=== PATIENT | male | born 1960 | race African-American/Black ===

== ENCOUNTER 2018-03-07 12:20 | Emergency (ER) | payer MEDICAID ==
[~2018-03-07] VITALS: Ht 167.6 cm; Wt 66.0 kg
[2018-03-07] MEDS ORDERED: FAMOTIDINE 20MG TABLET PO ONE (14:45)
[2018-03-07] MEDS ORDERED: METHYLPREDNISOLONE SOD SUCC 125 MG/2 ML VIAL IM ONE (14:45)
[2018-03-07] MEDS ORDERED: DIPHENHYDRAMINE 25MG CAPSULE PO ONE (14:45)
[2018-03-07 15:19] VITALS: BP 144/81
== END 2018-03-07 15:27 | disposition home or self-care (01) ==
LOC: ER 12:38
DX: T78.40XA Allergy, unspecified, initial encounter (principal); I10 Essential (primary) hypertension; E78.00 Pure hypercholesterolemia, unspecified; F17.200 Nicotine dependence, unspecified, uncomplicated; Z86.73 Personal history of transient ischemic attack (TIA), and cerebral infarction without residual deficits; X58.XXXA Exposure to other specified factors, initial encounter
CPT/HCPCS: 96372; 99283; J2930; Z7610; Q0163

== ENCOUNTER 2018-07-02 09:01 | Emergency (ER) | payer MEDICAID ==
[~2018-07-02] VITALS: Ht 167.6 cm; Wt 63.0 kg
[2018-07-02 09:26] VITALS: BP 149/89
[2018-07-02] MEDS ORDERED: ALBUTEROL (0.083%) 2.5MG/3ML NEB HHN STA (10:33)
[2018-07-02] MEDS ORDERED: IPRATROPIUM BROMIDE (0.02%) 0.5MG/2.5ML NEB HHN STA (10:33)
== END 2018-07-02 12:08 | disposition home or self-care (01) ==
LOC: ER 09:48
DX: J45.909 Unspecified asthma, uncomplicated (principal); I10 Essential (primary) hypertension; F17.200 Nicotine dependence, unspecified, uncomplicated; Z86.73 Personal history of transient ischemic attack (TIA), and cerebral infarction without residual deficits
CPT/HCPCS: 94640; 99283; J7611

== ENCOUNTER 2019-08-18 11:27 | Emergency (ER) | payer MEDICAID ==
[~2019-08-18] VITALS: Ht 167.6 cm; Wt 65.0 kg
[2019-08-18] MEDS ORDERED: PREDNISONE 20MG TABLET PO ONE (12:00)
[2019-08-18] MEDS ORDERED: IPRATROPIUM/ALBUTEROL 0.5-3(2.5)MG/3ML NEB HHN ONE (12:00)
[2019-08-18 13:20] VITALS: BP 151/82
== END 2019-08-18 13:39 | disposition home or self-care (01) ==
LOC: ER 11:27
DX: J44.1 Chronic obstructive pulmonary disease with (acute) exacerbation (principal); I10 Essential (primary) hypertension; Z98.890 Other specified postprocedural states; Z86.73 Personal history of transient ischemic attack (TIA), and cerebral infarction without residual deficits
CPT/HCPCS: 94640; 99283; J7512; J7620; Z7610

== ENCOUNTER 2019-11-08 04:42 | Emergency (ER) | payer MEDICAID ==
[~2019-11-08] VITALS: Ht 167.6 cm; Wt 65.0 kg
[2019-11-08] MEDS ORDERED: PREDNISONE 20MG TABLET PO STA (05:04)
[2019-11-08] MEDS ORDERED: IPRATROPIUM BROMIDE (0.02%) 0.5MG/2.5ML NEB HHN STA (05:04)
[2019-11-08] MEDS ORDERED: ALBUTEROL (0.083%) 2.5MG/3ML NEB HHN STA (05:04)
[2019-11-08 06:59] VITALS: BP 152/86
== END 2019-11-08 07:16 | disposition home or self-care (01) ==
LOC: EDUNIT# 04:42 → ER 04:42
DX: J45.901 Unspecified asthma with (acute) exacerbation (principal); I10 Essential (primary) hypertension; F17.200 Nicotine dependence, unspecified, uncomplicated
CPT/HCPCS: 71045; 94644; 99285; J7512; J7611; Z7610

== ENCOUNTER 2020-05-16 07:06 | Emergency (ER) | payer MEDICAID ==
[~2020-05-16] VITALS: Ht 167.6 cm; Wt 65.0 kg
[2020-05-16 07:43] VITALS: BP 123/65
[2020-05-16] MEDS ORDERED: IPRATROPIUM BROMIDE (0.02%) 0.5MG/2.5ML NEB HHN STA (08:11)
[2020-05-16] MEDS ORDERED: ALBUTEROL (0.083%) 2.5MG/3ML NEB HHN STA (08:11)
[2020-05-16] MEDS ORDERED: PREDNISONE 20MG TABLET PO STA (08:11)
[2020-05-16] MEDS ORDERED: ALBUTEROL (0.5%) 2.5MG/0.5ML NEB HHN ONE (08:51)
[2020-05-16] MEDS ORDERED: IPRATROPIUM BROMIDE (0.02%) 0.5MG/2.5ML NEB ONE (08:52)
[2020-05-16] MEDS ORDERED: ALBUTEROL (0.083%) 2.5MG/3ML NEB ONE (08:52)
== END 2020-05-16 10:19 | disposition home or self-care (01) ==
LOC: ER 07:06
DX: J44.1 Chronic obstructive pulmonary disease with (acute) exacerbation (principal); J45.901 Unspecified asthma with (acute) exacerbation; I10 Essential (primary) hypertension
CPT/HCPCS: 71045; 94640; 99283; J7512; Z7610

== ENCOUNTER 2023-01-18 17:39 | Emergency (ER) | payer MEDICAID ==
[~2023-01-18] VITALS: Ht 172.7 cm; Wt 64.0 kg
[2023-01-18 17:50] VITALS: BP 145/83
[2023-01-18] MEDS ORDERED: DEXAMETHASONE 4MG TABLET PO ONE (19:15)
[2023-01-18] MEDS ORDERED: IPRATROPIUM/ALBUTEROL 0.5-3(2.5)MG/3ML NEB HHN ONE (19:30)
[2023-01-18] MEDS ORDERED: ALBU6.7H3 INH (21:50)
== END 2023-01-18 22:02 | disposition home or self-care (01) ==
LOC: ER 17:39
DX: J45.901 Unspecified asthma with (acute) exacerbation (principal); F17.210 Nicotine dependence, cigarettes, uncomplicated; I10 Essential (primary) hypertension; J44.9 Chronic obstructive pulmonary disease, unspecified; Z71.6 Tobacco abuse counseling
CPT/HCPCS: 71045; 93005; 94640; 99283; 99406; J8540; Z7610